=== PATIENT | female | born 1960 | race Caucasian/White ===

== ENCOUNTER 2017-01-29 11:43 | Observation (INO) | payer MEDICAID ==
[2017-01-29] MEDS ORDERED: Albuterol 0.083% Inhal Sol (2.5 mg/3 mL) UD INH ONE (13:25)
[2017-01-29] MEDS ORDERED: Albuterol 0.083% Inhal Sol (2.5 mg/3 mL) UD ONE (13:31)
--- NOTE | 2017-01-29 13:38 | ED PDOC ---
HPI: SOB/CHF/COPD Time Seen by Provider: 01/29/17 12:00 Chief Complaint (Nursing): Shortness Of Breath Chief Complaint (Provider): Shortness Of Breath History Per: Patient Onset/Duration Of Symptoms: Days Current Symptoms Are (Timing): Still Present Quality: "Pain" Severity: Mild Associated Symptoms: Chest Pain. denies: Fever Additional Complaint(s): Patient is a 56 year old female with no past medical history as per patient, but pt states her doctor told her she may have mild heart attack, presents to ED for evaluation of chest pain and SOB for 4 days. Patient denies fever, abdominal pain, vomiting or rash Past Medical History Reviewed: Historical Data, Nursing Documentation, Vital Signs Vital Signs: Last Vital Signs Temp 98.3 F 01/29/17 18:29 Pulse 55 L 01/29/17 18:29 Resp 16 01/29/17 18:29 BP 96/65 L 01/29/17 18:29 Pulse Ox 98 01/29/17 18:29 - Medical History PMH: Deep Vein Thrombosis (blood clot, left neck), Hypercholesterolemia, Hypothyroidism - Surgical History Surgical History: No Surg Hx - Family History Family History: States: Unknown Family Hx - Living Arrangements Living Arrangements: With Family - Social History Current smoker - smoking cessation education provided: No Alcohol: None Drugs: Denies - Immunization History Hx Tetanus Toxoid Vaccination: No Hx Influenza Vaccination: No Hx Pneumococcal Vaccination: No - Home Medications Home Medications: Ambulatory Orders Medication Instructions Recorded Albuterol 0.083% [Albuterol 0.083% 3 ml IH Q6H PRN 01/29/17 Inhal Yanely (2.5 mg/3 ml) UD] Aspirin [Ecotrin] 81 mg PO DAILY 01/29/17 Ciprofloxacin [Cipro] 500 mg PO BID 01/29/17 Fluticasone/Salmeterol 100/50 1 puff IH Q12H 01/29/17 [Advair Diskus 100/50] Levothyroxine [Synthroid] 100 mcg PO DAILY 01/29/17 Montelukast [Singulair] 10 mg PO HS 01/29/17 Zolpidem [Ambien] 10 mg PO HS PRN 01/29/17 - Allergies Allergies/Adverse Reactions: Allergies Allergy/AdvReac Type Severity Reaction Status Date / Time No Known Allergies Allergy Verified 05/18/16 10:02 Review of Systems ROS Statement: Except As Marked, All Systems Reviewed And Found Negative Constitutional: Negative for: Fever, Chills Cardiovascular: Positive for: Chest Pain. Negative for: Palpitations Respiratory: Positive for: Shortness of Breath. Negative for: Cough, Sputum Gastrointestinal: Negative for: Abdominal Pain Musculoskeletal: Negative for: Neck Pain, Back Pain Physical Exam - Reviewed Nursing Documentation Reviewed: Yes Vital Signs Reviewed: Yes - Physical Exam Appears: Positive for: Non-toxic, No Acute Distress Skin: Positive for: Normal Color, Warm. Negative for: Rash Eye Exam: Positive for: Normal appearance Neck: Positive for: Normal, Painless ROM Cardiovascular/Chest: Positive for: Regular Rate, Rhythm. Negative for: Murmur Respiratory: Positive for: Normal Breath Sounds. Negative for: Respiratory Distress Gastrointestinal/Abdominal: Positive for: Normal Exam Extremity: Positive for: Normal ROM. Negative for: Calf Tenderness Neurologic/Psych: Positive for: Alert, Oriented - Laboratory Results Result Diagrams: 01/29/17 13:29 01/29/17 13:29 - ECG ECG: Positive for: Interpreted By Me ECG Rhythm: Positive for: Normal QRS, Normal ST Segment. Negative for: ST/T Changes Rate: 66 - Radiology X-Ray: Interpreted by Me, Viewed By Me, Read By Radiologist X-Ray Interpretation: No Acute Disease Nexus Criteria: Negative - CT Scan/US Chest CT Other Rad Studies (CT/US): Interpreted By Me, Read By Radiologist, Radiology Report Reviewed Medical Decision Making Medical Decision Making: Time: 1300 Initial impression: chest pain R/O Pneumonia and CAD Initial plan: -- CT Angio Chest, Pulmonary Embolism Protocol -- CMP -- Troponin -- CBC -- CXR -- Albuterol -- Aspirin 325 mg PO 14:28 Chest X-Ray Results FINDINGS: Lungs: No active pulmonary disease. Pleura: No significant pleural effusion identified. No pneumothorax apparent. Cardiovascular: No radiographic findings to suggest acute or significant cardiovascular disease. Osseous Structures: No significant abnormalities. Visualized Upper Abdomen: Normal. OTHER FINDINGS: None. IMPRESSION: No active disease. No significant interval change compared to the prior examination(s). 14:50 Patient's chest pain and shortness of breath remains persistent, will order a CT of the chest to rule out a pulmonary embolism. Patient will be admit under Dr. Siddiqui of medical services once provider receives the CT results. 17:[address] Results FINDINGS: Pulmonary Arteries: Unremarkable. No pulmonary embolism. Aorta: No acute findings. No thoracic aortic aneurysm. Lungs: Basilar subsegmental dependent atelectasis approximately symmetrical. Pleural Spaces: Unremarkable. No effusion or pneuomothorax. Heart: Unremarkable. No cardiomegaly. No significant pericardial effusion. Lymph Nodes: No lymphadenopathy. Bones, Chest Wall: Unremarkable. No fracture or destructive lesion. OTHER FINDINGS: Unremarkable. IMPRESSION: Unremarkable CT pulmonary angiogram. No pulmonary embolus. Incidental finding(s): Atelectatic changes at the lung bases. 17:35 Dr. Chen [place] collection clerk placed collection clerk for admission. pt made aware of results and need for rule out VA with serial troponin and EKGS pt agreeable to stay ASA given Scribe Attestation: Documented by Meghan Dietz and Delfino Fortune, acting as a scribe for María Elena Mancini MD. Scribe Attestation: All medical record entries made by the Scribe were at my direction and personally dictated by me. I have reviewed the chart and agree that the record accurately reflects my personal performance of the history, physical exam, medical decision making, and the department course for this patient. I have also personally directed, reviewed, and agree with the discharge instructions and disposition. Disposition - Clinical Impression Clinical Impression: Chest pain - Patient ED Disposition Is Patient to be Admitted: Yes Counseled Patient/Family Regarding: Studies Performed, Diagnosis - Disposition Disposition Time: 14:00 Condition: STABLE
[2017-01-29 13:46] LABS: ALB/GLOB RATIO 1.2 (1.0-2.1); ALKALINE PHOSPHATASE 95 U/L (38-126); ALT/SGPT 31 U/L (9-52); AST/SGOT 33 U/L (14-36); BILIRUBIN,TOTAL 0.2 mg/dl (0.2-1.3); BLOOD UREA NITROGEN 12 mg/dl (7-17); CALCIUM 9.6 mg/dL (8.4-10.2); CARBON DIOXIDE 27 mmol/L (22-30); CHLORIDE 105 mmol/L (98-107); GFR AFRICAN-AMERICAN > 60; GLUCOSE,RANDOM 92 mg/dL (65-105); POTASSIUM 4.1 MMOL/L (3.6-5.0); SODIUM 143 mmol/l (132-148); TOTAL PROTEIN 8.1 G/DL (6.3-8.2)
[2017-01-29 13:53] LABS: BASO % 0.3 % (0.0-2.0); EOS # 0.2 K/uL (0.0-0.7); EOS % 1.5 % (0.0-4.0); HEMATOCRIT 38.1 % (34.0-47.0); LYMPH # 2.9 K/uL (1.0-4.3); LYMPH % 28.8 % (20.0-40.0); MEAN CELL VOLUME 79.8 fl (81.0-99.0); MEAN CORPUSCULAR HEMOGLOBIN 25.8 pg (27.0-31.0); MEAN CORPUSCULAR HGB CONC 32.4 g/dL (33.0-37.0); MEAN PLATELET VOLUME 8.4 fl (7.2-11.7); MONO # 0.7 K/uL (0.0-0.8); MONO % 6.7 % (0.0-10.0); NEUT # 6.4 K/uL (1.8-7.0); NEUT % 62.7 % (50.0-75.0); RED CELL DISTRIBUTION WIDTH 13.6 % (11.5-14.5); WHITE BLOOD COUNT 10.2 K/uL (4.8-10.8)
--- NOTE | 2017-01-29 14:30 | RAD ---
HISTORY: Shortness of breath. COMPARISON: 09/02/2010. TECHNIQUE: Chest PA and lateral FINDINGS: LUNGS: No active pulmonary disease. PLEURA: No significant pleural effusion identified. No pneumothorax apparent. CARDIOVASCULAR: No radiographic findings to suggest acute or significant cardiovascular disease. OSSEOUS STRUCTURES: No significant abnormalities. VISUALIZED UPPER ABDOMEN: Normal. OTHER FINDINGS: None. IMPRESSION: No active disease. No significant interval change compared to the prior examination(s). Concordant results with the preliminary interpretation rendered by the emergency department physician
[2017-01-29] MEDS ORDERED: Iodixanol 320 MG/ML 100 ML BOTTLE IV ONE (15:26)
[2017-01-29] MEDS ORDERED: Sodium Chloride 0.9% 50 ML IV ONE (15:27)
--- NOTE | 2017-01-29 17:14 | CT ---
PROCEDURE: CT Chest with contrast (Pulmonary Angiogram) HISTORY: chest pain COMPARISON: January 29, 2017. Two-view chest TECHNIQUE: Axial computed tomography images were obtained of the chest in the pulmonary arterial phase of enhancement. Coronal and sagittal reformatted images were created and reviewed. Intravenous contrast dose: 85 cc Visipaque 320. Mean Hounsfield unit values in the main pulmonary artery: 389.93 Radiation dose: Total exam DLP = 367.91 mGy-cm. This CT exam was performed using one or more of the following dose reduction techniques: Automated exposure control, adjustment of the mA and/or kV according to patient size, and/or use of iterative reconstruction technique. FINDINGS: PULMONARY ARTERIES: Unremarkable. No pulmonary embolism. AORTA: No acute findings. No thoracic aortic aneurysm. LUNGS: Basilar subsegmental dependent atelectasis approximately symmetrical. PLEURAL SPACES: Unremarkable. No effusion or pneuomothorax. HEART: Unremarkable. No cardiomegaly. No significant pericardial effusion. LYMPH NODES: No lymphadenopathy. BONES, CHEST WALL: Unremarkable. No fracture or destructive lesion OTHER FINDINGS: Unremarkable. IMPRESSION: Unremarkable CT pulmonary angiogram. No pulmonary embolus. Incidental finding(s): Atelectatic changes at the lung bases.
[2017-01-29 21:51] VITALS: O2SAT 95
[2017-01-29] MEDS ORDERED: Albuterol 0.083% Inhal Sol (2.5 mg/3 mL) UD IH PRN (22:50)
[2017-01-29] MEDS ORDERED: Fluticasone-Salmeterol 100-50mcg Diskus IH SCH (23:00)
[2017-01-29 23:58] VITALS: BP 121/74; PULSE 60; RESP 20; TEMP 98
[2017-01-30] MEDS ORDERED: Levothyroxine 100 MCG TAB PO SCH (06:30)
--- NOTE | 2017-01-30 15:05 | CON ---
DATE: 01/30/2017 She is hospitalized under Dr. Siddiqui's care in room 408, bed 2. HISTORY OF PRESENT ILLNESS: This 56-year-old female gives history of having had seasonal allergies a nd a history of asthma, which has flared up since the change of seasons. She denies any history of h ypertension or diabetes, and has excellent effort tolerance, can walk 8-10 blocks and can climb a cou ple of flights of stairs without any difficulty. Has never experienced any chest pain. Came in to [facility] Emergency Room complaining of shortness of breath with minimal exertion. Also, reported some ches t discomfort and was hospitalized. Her electrocardiogram in the Emergency Room was normal. A comparison with an earlier electrocardiogr am of 05/2016 also shows a similar pattern. Her echocardiogram done this morning also shows a preserved left ventricular systolic function with n o significant valvulopathy, normal left ventricular wall motion pattern. PHYSICAL EXAMINATION: GENERAL: Shows a middle-aged pleasant female who is comfortably lying in bed. VITAL SIGNS: Breathes at 14-16 breaths per minute, has a heart rate of 74 beats per minute, regular, and a blood pressure of 122/72 mmHg. NECK: Her jugular venous pressure was not elevated. EXTREMITIES: There was no edema of her lower extremities. The pedal pulses were well felt. There w ere no carotid bruits. THYROID AND BREASTS: Did not reveal anything abnormal. HEART: The first and second heart sounds are normal. There was no murmur, no gallop. LUNGS: No rales. ABDOMEN: Soft. Liver and spleen were not palpable. Her electrocardiogram again showed sinus rhythm with a normal EKG pattern. Two sets of cardiac enzymes were negative. IMPRESSION: Atypical chest discomfort. No evidence of acute coronary syndrome, bronchial asthma, ch ronic hypothyroidism. The patient may be allowed to return home and be cared for as an outpatient. There is no evidence of acute coronary syndrome here. Terence Chicas MD cc: 23 TT: 01/30/2017 12:03:20 Confirmation # [id number] Dictation # [id number]
--- NOTE | 2017-01-30 15:05 | CARD ---
APPROVED REPORT EXAM: Two-dimensional and M-mode echocardiogram with Doppler and color Doppler. Other Information Quality : GoodRhythm : NSR INDICATION Chest Pain 2D DIMENSIONS IVSd0.87 (0.7-1.1cm)LVDd4.85 (3.9-5.9cm) LVOT Diameter2.21 (1.8-2.4cm)PWd0.74 (0.7-1.1cm) IVSs1.25 (0.8-1.2cm)LVDs2.90 (2.5-4.0cm) FS (%) 40.1 %PWs1.05 (0.8-1.2cm) LVEF (%)55.0 (>50%) M-Mode DIMENSIONS Left Atrium (MM)4.17 (2.5-4.0cm)IVSd1.22 (0.7-1.1cm) Aortic Root3.34 (2.2-3.7cm)LVDd5.29 (4.0-5.6cm) Aortic Cusp Exc.1.75 (1.5-2.0cm)PWd1.16 (0.7-1.1cm) IVSs1.62 cmFS (%) 42 % LVDs3.08 (2.0-3.8cm)PWs1.92 cm Mitral Valve MV E Pafskldi39.4cm/sMV DECEL [id number] A Tdbkerjo81.3cm/s MV [id number]/A ratio0.9MVA (PHT)3.13cm2 TDI Lateral E' Peak V12.87cm/sMedial E' Peak V7.90cm/sE/Lateral E'5.2 E/Medial E'8.5 LEFT VENTRICLE The left ventricle is normal size. There is borderline to mild concentric left ventricular hypertrophy. The left ventricular function is normal. The left ventricular ejection fraction is within the normal range. There is normal LV segmental wall motion. Transmitral Doppler flow pattern is Grade I-abnormal relaxation pattern. RIGHT VENTRICLE The right ventricle is normal size. There is normal right ventricular wall thickness. The right ventricular systolic function is normal. ATRIA The left atrium size is normal. The right atrium size is normal. AORTIC VALVE The aortic valve is not well visualized. No aortic regurgitation is present. There is no aortic valvular stenosis. MITRAL VALVE The mitral valve is not well visualized. There is no mitral valve stenosis. There is no mitral valve regurgitation noted. TRICUSPID VALVE The tricuspid valve is normal in structure and function. There is no tricuspid valve regurgitation noted. PULMONIC VALVE The pulmonary valve is normal in structure and function. There is no pulmonic valvular regurgitation. GREAT VESSELS The aortic root is normal in size. The IVC was not visualized. PERICARDIAL EFFUSION There is a small loculated anterior pericardial effusion. <Conclusion> The left ventricle is normal size. There is borderline to mild concentric left ventricular hypertrophy. The left ventricular function is normal. The left ventricular ejection fraction is within the normal range. There is normal LV segmental wall motion. Transmitral Doppler flow pattern is Grade I-abnormal relaxation pattern.
--- NOTE | 2017-01-30 20:09 | CP.PCM.HP ---
History of Present Illness - History of Present Illness History of Present Illness: 56 y/o F, came to ER [facility] to be evaluated for increased SOB associated to dry intermittent cough, onset 3 days [employer], Pt using nebulizer Tx with no relief. worsening symptoms; Complaints of mild L side Chest pain/discomfort, CHACON, dyspnea at rest. Aggravated factor: increased CHACON with exercise. Pt denied: Fever, chills, productive or bloody cough, LOC, dizziness, headache , numbness, n/v/d, abdominal pain, urinary symptoms, sick contact, recent travel. PMHx: Bronchial Asthma, Seasonal allergies, DVT, Herpes Zoster on L chest wall and L neck, Hypercholesterolemia, Hypothyroidism, Sciatica, O/A, Calcified tendinitis left Shoulder. CXR shows: No active disease. CT Chest: Atelectasis changes at the lung bases. EKG: Sinus Bradycardia. Echo showed: Left ventricular hypetrophy, LVEF normal, LV function normal. Present on Admission - Present on Admission Any Indicators Present on Admission: Yes History of DVT/PE: Yes Review of Systems - Constitutional Constitutional: Other (negative) - EENT Eyes: Other (negative) Ears: Other (negative) Nose/Mouth/Throat: Other (negative) - Cardiovascular Cardiovascular: Chest Pain, Dyspnea, Dyspnea on Exertion - Respiratory Respiratory: Cough, Dyspnea, Dyspnea on Exertion - Gastrointestinal Gastrointestinal: Other (negative) - Genitourinary Genitourinary: Other (negative) - Musculoskeletal Musculoskeletal: Arthralgias - Integumentary Integumentary: Other (negative) - Neurological Neurological: Other (negative) - Psychiatric Psychiatric: Abnormal Sleep Pattern - Endocrine Endocrine: Other (negative) - Hematologic/Lymphatic Hematologic: Other (negative) Past Patient History - Infectious Disease Hx of Infectious Diseases: None - Past Medical History & Family History Pertinent Family History: Unknown - Past Social History Smoking Status: Never Smoked Alcohol: None Drugs: Denies Home Situation {Lives}: With Family - CARDIAC Hx Cardiac Disorders: Yes Hx Hypercholesterolemia: Yes - PULMONARY Hx Respiratory Disorders: Yes Hx Asthma: Yes - HEENT Hx HEENT Problems: No - RENAL Hx Chronic Kidney Disease: No - ENDOCRINE/METABOLIC Hx Endocrine Disorders: Yes Hx Hypothyroidism: Yes - HEMATOLOGICAL/ONCOLOGICAL Hx Blood Disorders: Yes Hx Shingles: Yes - INTEGUMENTARY Hx Dermatological Problems: No - MUSCULOSKELETAL/RHEUMATOLOGICAL Hx Musculoskeletal Disorders: Yes Hx Arthritis: Yes - GASTROINTESTINAL Hx Gastrointestinal Disorders: No - GENITOURINARY/GYNECOLOGICAL Hx Genitourinary Disorders: No - PSYCHIATRIC Hx Psychophysiologic Disorder: Yes Hx Substance Use: No - SURGICAL HISTORY Hx Surgeries: No - ANESTHESIA Hx Anesthesia: No Meds Allergies/Adverse Reactions: Allergies Allergy/AdvReac Type Severity Reaction Status Date / Time No Known Allergies Allergy Verified 01/29/17 19:49 Physical Exam - Constitutional Appears: No Acute Distress - Head Exam Head Exam: NORMAL INSPECTION - Eye Exam Eye Exam: PERRL - ENT Exam ENT Exam: Normal Oropharynx - Neck Exam Neck exam: Positive for: Normal Inspection - Respiratory Exam Respiratory Exam: NORMAL BREATHING PATTERN - Cardiovascular Exam Cardiovascular Exam: REGULAR RHYTHM - GI/Abdominal Exam GI & Abdominal Exam: Normal Bowel Sounds, Soft - Extremities Exam Extremities exam: Positive for: normal inspection - Back Exam Back exam: NORMAL INSPECTION - Neurological Exam Neurological exam: Alert, Oriented x3 Additional comments: No motor sensory deficit. - Psychiatric Exam Psychiatric exam: Normal Mood - Skin Skin Exam: Warm Results - Vital Signs Recent Vital Signs: Last Vital Signs Temp 98 F 01/29/17 23:57 Pulse 60 01/29/17 23:57 Resp 20 01/29/17 23:57 BP 121/74 01/29/17 23:57 Pulse Ox 95 01/29/17 23:57 reviewed J.P. - Labs Result Diagrams: 01/29/17 13:29 01/29/17 13:29 Labs: Laboratory Results - last 24 hr 01/29/17 21:17 POC Glucose (mg/dL) 119 H reviewed J.P. - EKG Data EKG comments: reviewed J.P> - Impressions Impression: Echo Reviewed J.P. - Imaging and Cardiology Chest x-ray Status: Report reviewed by me (J.P.) CT scan - chest Status: Report reviewed by me (J.P.) Assessment & Plan (1) Bronchial asthma Status: Acute Priority: High (2) Chest discomfort Status: Resolved Comment: Atypical. (3) Hypothyroidism Status: Chronic Priority: Medium - Assessment and Plan (Free Text) Plan: On Advair, Singulair, Albuterol, Ecotin, Synthroid. Pt seen by [facility], Dx with Non acute coronary syndrome, cleared for f/u as out Pt, Cardiac consult appreciated. Pt improved and stable to be discharged, see instruction medications sheet, f/u with PMD in a week. - Date & Time Date: 01/30/17
--- NOTE | 2017-01-31 11:16 | CARD ---
APPROVED REPORT EKG Measurement Heart [id number] MT 158P-8 [id number] <Conclusion> Sinus bradycardia Otherwise normal ECG
--- NOTE | 2017-01-31 15:08 | CARD ---
APPROVED REPORT EKG Measurement Heart [id number] IA 142P-4 [id number] <Conclusion> Normal sinus rhythm Normal ECG
== END 2017-01-30 13:25 | disposition home or self-care (01) ==
LOC: H.ER 11:43 → H.ERHOLD 17:39 → H.TEL 21:44
PROVIDERS: ADMIT Internal Medicine Pulmonary Disease; ATTEND Internal Medicine Pulmonary Disease
DX: R07.89 Other chest pain (principal); E03.9 Hypothyroidism, unspecified; E78.00 Pure hypercholesterolemia, unspecified; J45.909 Unspecified asthma, uncomplicated; Z86.718 Personal history of other venous thrombosis and embolism